=== PATIENT | male | born 1980 | race African-American/Black ===

== ENCOUNTER 2023-02-14 12:54 | Emergency (ER) | payer BC ==
[2023-02-14] MEDS: Ketorolac 30 MG/ML SDV IM ONE (13:21)
[2023-02-14 13:36] LABS: APPEARANCE,URINE CLEAR (CLEAR); BILIRUBIN,URINE NEGATIVE (NEGATIVE); COLOR,URINE DARK YELLOW (YELLOW); GLUCOSE,URINE NEGATIVE (NEGATIVE); KETONES,URINE NEGATIVE (NEGATIVE); LEUKOCYTE ESTERASE,URINE TRACE (NEGATIVE); NITRITE,URINE NEGATIVE (NEGATIVE); OCCULT BLOOD,URINE NEGATIVE (NEGATIVE); PH,URINE 7.5 (5.0-9.0); PROTEIN,URINE TRACE mg/dL (NEGATIVE)
[2023-02-14 13:44] LABS: BACTERIA,URINE OCCASIONAL /HPF (NONE TO FEW); EPITHELIAL CELLS,URINE OCCASIONAL /LPF; MUCUS,URINE OCCASIONAL /LPF (NEGATIVE); RBC,URINE 0-5 /HPF (0-5)
== END 2023-02-14 13:46 ==
LOC: KA.ED 12:54
DX: N50.811 Right testicular pain (principal)
CPT/HCPCS: 81001; 96372; 99283; 99284; J1885